=== PATIENT | male | born 2000 | race Two or more races ===

== ENCOUNTER 2024-09-03 17:39 | Emergency (ER) | payer MEDICAID, SELFPAY ==
[2024-09-03 18:07] VITALS: BP 111/75; PULSE 82; RESP 16; TEMP 36.9; O2SAT 99; BMI 18.6
--- NOTE | 2024-09-03 18:19 | EDNOTE_ITS ---
ED Wound/Laceration-RME/HPI General Chief Complaint: Wound/Laceration Stated Complaint: L) 5TH FINGER LAC Time Seen by Provider: 09/03/24 18:14 Arrival date/time: 09/03/24 17:39 24M with no significant PMH presents ot ED with L pinky lac while trying to open a can. Patient has not had a tetanus shot in the past 5 years. Limitations: no limitations Related Data Allergies Allergy/AdvReac Type Severity Reaction Status Date / Time No Known Allergies Allergy Verified 09/03/24 17:46 Review of Systems Review of Systems Systems Reviewed: All systems reviewed, normal except as documented Constitutional Constitutional: Reports system reviewed and no additional complaints, except as documented, Denies fever(s) and Denies headache(s) ENT Ears, Nose, Mouth, and Throat: Denies disequilibrium and Denies headache(s) Cardiovascular Cardiovascular: Reports system reviewed and no additional complaints, except as documented, Denies chest pain and Denies dyspnea Respiratory Respiratory: Reports system reviewed and no additional complaints, except as documented, Denies cough and Denies dyspnea Gastrointestinal Gastrointestinal: Reports system reviewed and no additional complaints, except as documented, Denies abdominal pain, Denies nausea and Denies vomiting Integumentary/Breasts Skin/Breast: Reports as per HPI and Reports skin pain Neurologic Neurologic: Reports system reviewed and no additional complaints, except as documented, Denies confusion, Denies disequilibrium and Denies headache(s) Psychiatric Psychiatric: Denies confusion Past Medical History Social History SMOKING STATUS: Former smoker ED Exam General Limitations: Present no limitations General appearance: Present alert and in no apparent distress Head Head exam: Present atraumatic Eye Eye exam: Present normal appearance, PERRL and EOMI ENT ENT exam: Present normal exam, normal oropharynx and mucous membranes moist Neck Neck exam: Present normal inspection, full ROM and trachea midline Chest Chest inspection: Present normal inspection and symmetric chest wall rise Respiratory Respiratory exam: Present normal lung sounds bilaterally Cardiovascular Cardiovascular exam: Present regular rate, normal rhythm and normal heart sounds Abdominal Exam Abdominal exam: Present soft and normal bowel sounds Extremities Exam Extremities exam: Present full ROM Expanded Upper Extremity Exam Hand exam: Present full ROM and laceration (1.5 cm L pinky palmar side) Back Exam Back exam: Present normal inspection and full ROM Neurological Exam Neurological exam: Present alert, oriented X3 and CN II-XII intact Psychiatric Psychiatric exam: Present normal affect and normal mood Skin Skin exam: Present warm, dry, intact and normal color Course Quality Measures none Orders Category Date Time Status Set Up Suture Tray STAT Care 09/03/24 18:14 Completed Wound Care NOW Care 09/03/24 18:14 Completed Tet,Diphth,Pertuss(Acell)-Tdap [Boostrix Vacc] Med 09/03/24 18:14 Discontinued 0.5 ml IMI .ONCE ONE Vital Signs Vital signs: Vital Signs Temperature 98.5 F 09/03/24 18:07 Pulse Rate 82 09/03/24 18:07 Respiratory Rate 16 09/03/24 18:07 Blood Pressure 111/75 09/03/24 18:07 Pulse Oximetry (%) 99 09/03/24 18:07 Oxygen Delivery Method Room Air 09/03/24 18:07 O2 at 99% on RA and WNLs Wound / Laceration MDM Narrative MDM Narrative:: 24M with no significant PMH presents ot ED with L pinky lac while trying to open a can. Patient has not had a tetanus shot in the past 5 years. Physical exam reveal 1.5 cm lac on L pinky finger (palmar). ROM intact. Patient is afebrile, calm,and alert. Tdap given. Wound cleaned/irrigated and closed with 6 stitches. Given marriage counselor minister to have stitches removed in about 14 days. Patient data External records reviewed:: None Clinical information provided by:: patient Social determinants that could affect healthcare access:: none Patient has the following chronic illnesses:: none How is presenting disease/condition affected by chronic disease/condition?: no chronic disease Evaluation data The following diagnostics were reviewed and interpreted by me:: other (specify) (none) Lab and/or radiology exams considered but not ordered:: not ordered Interpretation Summary: n/a Medications / Prescriptions Medications or Prescriptions considered but not ordered:: ordered Medication administrations:: Medication Administration History Discontinued Medications Diphtheria/Tetanus/Acell Pertussis (Diphth,Pertuss(Acell),Tet Vac 0.5 Ml Syr- Adult) 0.5 ml IMi .ONCE ONE Stop: 09/03/24 18:15 Last Admin: 09/03/24 18:37 Dose: 0.5 ml Documented By: ER above Consultations Consultation(s) initiated? (list below): No Diagnosis Wound Differential Diagnosis: laceration, abrasion and avulsion of skin Most likely diagnosis given after review of the tests above:: laceration Admission Indicated Admission indicated?: not indicated Admission Request Was there a request for admission?: No Disposition Plan Disposition Plan: Discharge Discharge Attestation Discharge Attestation: The patient and all family members were given an opportunity to ask questions and understood the discharge instructions. Discharge instructions specifically effects, indications for sooner follow up or return to the emergency department, and the expected course of current diagnosis. Patient condition: Stable Discharge Plan Plan Patient Disposition: HOME (Self Care) Disposition Comment: Stable Problem List Clinical Impression: Laceration Patient/Caregiver Discharge Instructions Additional Instructions: Please follow-up with PCP within 24-48 hours and return immediately if symptoms worsen. Have stitches removed in about 10-14 days. Print Language: Croatian Stand Alone Forms: Patient Portal Info Letter CLAUDE/JONI Supervising Physician CLAUDE/JONI Supervising Physician: Dr. Gamble
[2024-09-03] MEDS: DIPHTH,PERTUSS(ACELL),TET VAC 0.5 ML SYR- ADULT IMi (18:37)
== END 2024-09-03 19:33 | disposition home or self-care (01) ==
LOC: SERX 19:36
PROVIDERS: Emergency Provider Emergency Medicine
DX: S61.217A Laceration without foreign body of left little finger without damage to nail, initial encounter (principal); W26.8XXA Contact with other sharp object(s), not elsewhere classified, initial encounter; Z23 Encounter for immunization
CPT/HCPCS: 90471; 90715; 99283

== ENCOUNTER 2024-09-19 17:35 | Emergency (ER) | payer MEDICAID, SELFPAY ==
[2024-09-19 17:58] VITALS: BP 121/76; PULSE 74; RESP 16; TEMP 36.8; O2SAT 98; BMI 19.3
--- NOTE | 2024-09-19 18:25 | EDNOTE_ITS ---
ED Wound/Laceration-RME/HPI General Chief Complaint: Wound Recheck / Suture Removal Stated Complaint: LEFT PINKY SUTURE REMOVAL Time Seen by Provider: 09/19/24 17:44 Arrival date/time: 09/19/24 17:35 24-year-old male with no significant medical problems presents emergency department today for concerns for suture removal. Patient reports no fever nausea or vomiting patient reports wound is well-approximated with no discharge Limitations: no limitations Related Data Allergies Allergy/AdvReac Type Severity Reaction Status Date / Time No Known Allergies Allergy Verified 09/19/24 17:38 Review of Systems Review of Systems Systems Reviewed: All systems reviewed, normal except as documented Constitutional Constitutional: Reports system reviewed and no additional complaints, except as documented, Denies fever(s) and Denies headache(s) Eyes Eyes: Reports system reviewed and no additional complaints, except as documented and Denies blurry vision ENT Ears, Nose, Mouth, and Throat: Reports system reviewed and no additional complaints, except as documented, Denies headache(s), Denies nasal congestion and Denies nasal discharge Cardiovascular Cardiovascular: Reports system reviewed and no additional complaints, except as documented, Denies chest pain and Denies dyspnea Respiratory Respiratory: Reports system reviewed and no additional complaints, except as documented, Denies chest congestion, Denies cough and Denies dyspnea Gastrointestinal Gastrointestinal: Reports system reviewed and no additional complaints, except as documented and Denies abdominal pain Integumentary/Breasts Skin/Breast: Reports system reviewed and no additional complaints, except as documented, Denies rash and Reports wounds (Sutures in place left hand) Neurologic Neurologic: Reports system reviewed and no additional complaints, except as documented, Reports as per HPI and Denies headache(s) Past Medical History Social History SMOKING STATUS: Never smoker ED Exam General Limitations: Present no limitations General appearance: Present alert and in no apparent distress Head Head exam: Present atraumatic Eye Eye exam: Present normal appearance, PERRL and EOMI ENT ENT exam: Present normal exam, normal oropharynx and mucous membranes moist Neck Neck exam: Present normal inspection, full ROM and trachea midline Chest Chest inspection: Present normal inspection and symmetric chest wall rise Respiratory Respiratory exam: Present normal lung sounds bilaterally Cardiovascular Cardiovascular exam: Present regular rate, normal rhythm and normal heart sounds Abdominal Exam Abdominal exam: Present soft and normal bowel sounds Extremities Exam Extremities exam: Present normal inspection and full ROM Back Exam Back exam: Present normal inspection and full ROM Neurological Exam Neurological exam: Present alert, oriented X3 and CN II-XII intact Psychiatric Psychiatric exam: Present normal affect and normal mood Skin Skin exam: Present warm, dry, intact and normal color Course Quality Measures none Vital Signs Vital signs: Vital Signs Temperature 98.3 F 09/19/24 17:58 Pulse Rate 74 09/19/24 17:58 Respiratory Rate 16 09/19/24 17:58 Blood Pressure 121/76 09/19/24 17:58 Pulse Oximetry (%) 98 09/19/24 17:58 Oxygen Delivery Method Room Air 09/19/24 17:58 O2 saturation 98% room air within normal limits Wound / Laceration MDM Narrative MDM Narrative:: 24-year-old male with no significant medical problems presents emergency department today for concerns for suture removal. Patient reports no fever nausea or vomiting patient reports wound is well-approximated with no discharge On exam patient has sutures in place Sutures removed in their entirety Patient discharged home in no distress to follow-up with primary care doctor in the next 24 to 48 hours and for any worsening symptoms to return to the ER immediately Patient data External records reviewed:: [facility] previous records Clinical information provided by:: patient Social determinants that could affect healthcare access:: none Patient has the following chronic illnesses:: None How is presenting disease/condition affected by chronic disease/condition?: no chronic disease Evaluation data The following diagnostics were reviewed and interpreted by me:: other (specify) (N/A) Lab and/or radiology exams considered but not ordered:: Consider not ordered Interpretation Summary: N/A Medications / Prescriptions Medications or Prescriptions considered but not ordered:: No meds Medication administrations:: No Meds Consultations Consultation(s) initiated? (list below): No Diagnosis Wound Differential Diagnosis: laceration, abrasion and avulsion of skin Most likely diagnosis given after review of the tests above:: Suture removal Admission Indicated Admission indicated?: not indicated Admission Request Was there a request for admission?: No Disposition Plan Disposition Plan: Discharge Discharge Attestation Discharge Attestation: The patient and all family members were given an opportunity to ask questions and understood the discharge instructions. Discharge instructions specifically effects, indications for sooner follow up or return to the emergency department, and the expected course of current diagnosis. Patient condition: Stable Discharge Plan Plan Patient Disposition: HOME (Self Care) Disposition Comment: Stable Problem List Clinical Impression: Encounter for removal of sutures Patient/Caregiver Discharge Instructions Education Materials: ED Stitches/Staple Removal No ... Additional Instructions: Please follow up with your primary care doctor in the next 24-48hrs for any worsening symptoms return here immediately Print Language: Pashto Stand Alone Forms: Jolanta Award Info., Patient Portal Info Letter PA/FOUNDRY SUPERINTENDANT Supervising Physician PA/FOUNDRY SUPERINTENDANT Supervising Physician: Dr Baptiste
== END 2024-09-19 20:23 | disposition home or self-care (01) ==
PROVIDERS: Emergency Provider Emergency Medicine
DX: S61.412D Laceration without foreign body of left hand, subsequent encounter (principal); X58.XXXD Exposure to other specified factors, subsequent encounter
CPT/HCPCS: 99282

== ENCOUNTER 2024-12-02 19:35 | Emergency (ER) | payer MEDICAID, SELFPAY ==
--- NOTE | 2024-12-02 19:58 | XR_ITS ---
Examination: Hand, right 3 views Technique: Hand AP, oblique, lateral 3 views Date and time of exam: December 06, 2024 2120 hours INDICATIONS: Patient punched a wall today with hand pain. FINDINGS: Dorsal dislocation of the fourth and fifth metacarpals at the bases with tiny chip fractures off the base of the fifth metacarpal Digits intact IMPRESSION: Dorsal dislocation bases fourth and fifth metacarpals with tiny chip fractures off the base of the fifth metacarpal
--- NOTE | 2024-12-02 20:31 | EDNOTE_ITS ---
Upper Extremity Injury RME/HPI General Chief Complaint: Hand/Wrist Problems Stated Complaint: RIGHT HAND INJURY Time Seen by Provider: 12/02/24 20:17 Arrival date/time: 12/02/24 19:35 Limitations: no limitations RME / HPI RME / HPI narrative: 24-year-old male presents to the ED with a complaint of right hand injury secondary to punching a table. The injury occurred approximately 2 hours ago. Related Data Allergies Allergy/AdvReac Type Severity Reaction Status Date / Time No Known Allergies Allergy Verified 09/19/24 17:38 Review of Systems Review of Systems Systems Reviewed: All systems reviewed, normal except as documented Past Medical History Social History SMOKING STATUS: Current some day smoker ED Exam Narrative Physical exam: Alert and oriented 24-year-old male, mild acute pain distress, holding right hand against chest. No tenderness noted to the elbow or forearm. No tenderness to the distal radius or ulna. No pain with axial thumb load or snuffbox tenderness. No tenderness to the first second metacarpals or MCP joints. Positive pain to the third metacarpal and MCP joint with flexion of the third fi nger. Ecchymosis noted to the 4th and 5th MCP joints with significant swelling and tenderness to the 4th and 5th metacarpals. CMS intact distally to all 5 fingers. General Limitations: Present no limitations General appearance: Present alert Course Course Course Narrative: 24-year-old male presents to the ED with a complaint of right hand injury secondary to punching a table. The injury occurred approximately 2 hours ago. Alert and oriented 24-year-old male, mild acute pain distress, holding right hand against chest. No tenderness noted to the elbow or forearm. No tenderness to the distal radius or ulna. No pain with axial thumb load or snuffbox tenderness. No tenderness to the first second metacarpals or MCP joints. Positive pain to the third metacarpal and MCP joint with flexion of the third finger. Ecchymosis noted to the 4th and 5th MCP joints with significant swelling and tenderness to the 4th and 5th metacarpals. CMS intact distally to all 5 fingers. Quality Measures none Orders Category Date Time Status XR hand comp RT min 3V Stat Exams 12/02/24 19:58 Taken Discharge Plan Patient/Caregiver Discharge Instructions Print Language: Upper Sorbian
[2024-12-02 20:33] VITALS: BP 110/69; PULSE 75; RESP 20; TEMP 37.7; O2SAT 95
[2024-12-02] MEDS: IBUPROFEN TAB 600 MG TABLET PO (20:51)
--- NOTE | 2024-12-02 23:04 | PD.EDADDENDU ---
Emergency Room Addendum Addendum Narrative: I was asked to review this case by Christiane Clifford PA-C and determined that I need to consult a hand surgeon in order to see if the fourth and fifth right metacarpal dislocations can be reduced. On exam, patient has swelling to the medial right dorsum and palm of the hand. 2337: Spoke with [facility]'s transfer center. They will present the case to their hand surgeon and call me back. Multiple calls were placed to multiple [facility] trauma centers in an attempt to speak with a hand surgeon without any callbacks. Discussed risks versus benefits regarding reduction and procedural sedation. Patient consented to procedures. Will proceed with the reduction. See procedure note below for dislocation reduction, procedural sedation, and splint placement. Post procedural right hand x-ray shows successful reduction of the fourth and fifth dislocations, no new fractures, but concern for carpal dislocation, according to my intepretation. CT of the right hand ordered. 0426: CT of the right hand resulted. See below for report. Still pending consultation with a hand surgeon at this time. 0600: Care signed out to Dr. Baptiste (emergency physician). Past medical, surgical, social and family history reviewed. Vitals and home medications reviewed. Results and treatment plan discussed. They will assume the care of the patient at this time and will follow the patient, pending consultation with a hand surgeon. Procedures -ED Orthopedic Joint Reduction Joint #1: Time Out Performed: Yes Side: Right Joint Reduction Location: other (hand) Analgesia: procedural sedation Technique used: direct manipulation Post-reduction neuro exam: intact Post-reduction vascular: intact Post Reduction X-Ray Obtained: Yes Post Reduction X-Ray Results: reduced Splint Applied: Yes Patient Tolerated Procedure: well and no complications Procedural Sedation Indication: fracture/dislocation reduction Presedation Evaluation: Patient is alert, awake, and oriented x4, communicating and is answering questions appropriately. Preparation: personnel monitor applied, pulse oximeter, capnometry used, suction/airway equipment at bedside and IV secured Ketamine: IV Ketamine dose (mg): 135 Patient Tolerated Procedure: well and no complications Splint Fabrication: Clinician Made Type: Other (ulnar gutter) Reason for Splint: Optimal Positioning, Pain Management, Minimize Deformities and Support Joint/Muscle Site condition: Intact Circulation Distal to Splint: Yes Movement Distal to Splint: Yes Senation Distal to Splint: Yes Tolerance: Tolerates Well RADIOLOGY RESULTS: Telerad Preliminary Report Draft Patient: JAIMIE MCHUGH Record#: [id number] Birthdate: 2000 Age/Sex: 24 / M Location: [facility] Attending Dr: Ordering Physician: Date of Service: Procedure(s): Accession Number(s): cc: ~ CT right hand without intravenous contrast (axial sections with sagittal and coronal reformats) December 03, 2024 at 0308 hours Clinical History: Pain and deformity Findings: The evaluation is limited due to motion artifact. POP slab is noted. There is an acute comminuted and displaced fracture of the dorsoulnar aspect of the hamate, with intra-articular extension at the carpometacarpal joint of the fifth digit. There is a questionable acute minimally displaced fracture of the base of the fifth metacarpal. There is mild posterior dislocation of the base of the fifth metacarpal with respect to the hamate. There is mild adjacent soft tissue swelling. The other visualized bones and joints are unremarkable. No significant joint effusion is seen. The visualized muscles are unremarkable. Impression: Limited evaluation as described. 1. Acute comminuted and displaced fracture of the dorsoulnar aspect of the hamate, with intra-articular extension at the carpometacarpal joint of the fifth digit. 2. Questionable acute minimally displaced fracture of the base of the fifth metacarpal. 3. Mild posterior/dorsal dislocation of the base of the fifth metacarpal with respect to the hamate. 4. Other findings as described above. Report Electronically Signed By: Caio Shah 12/03/2024 3:58:53 AM [EST]
[2024-12-02 23:10] VITALS: BP 149/89; PULSE 63; RESP 18; TEMP 37.5; O2SAT 99
[2024-12-02 23:20] VITALS: PULSE 50
[2024-12-03] VITALS (9 sets, daily range): BP systolic 136–162; BP diastolic 72–101; PULSE 45–476; RESP 11–19; TEMP 36.6–36.9; O2SAT 97–100
--- NOTE | 2024-12-03 02:12 | XR_ITS ---
Examination: Hand, right 2 views Technique: Hand AP, lateral right hand 2 views Date and time of exam: December 03, 2024, 0227 hours INDICATIONS: Post reduction films FINDINGS: Improvement in the dorsal dislocation bases fourth and fifth metacarpals Small fracture fragments noted either off the hamate and/or base of the fifth metacarpal IMPRESSION: Improvement in the dorsal dislocation bases fourth and fifth metacarpals
[2024-12-03] MEDS: KETAMINE 50 MG/ML VIAL 10 ML 135 MG IVP (02:21)
--- NOTE | 2024-12-03 02:35 | XR_ITS ---
Examination: CT right hand, without contrast. 2-D sagittal reconstructions. 2-D coronal reconstructions. 3-D reconstructions. Date and time of exam:December 03, 2024 0308 hours INDICATIONS: Punching injury to the hand today, hand pain CTDI: vol (mGy):3.44 DLP: (mGycm):7.2 Technique: Multiple 1.25 mm axial sections of the right hand without intravenous contrast have been obtained. 2-D sagittal and coronal reconstructions have been obtained. 3-D reconstructions have been obtained. Low dose protocols were performed. One or more of the following dose reduction techniques were used; automated exposure control, adjustment of the mA and/or KV according to patient size, use of iterative reconstruction technique. Findings: Dislocation dorsally of the bases of the fourth and fifth metacarpals Comminuted displaced fractures of the dorsal surface of the hamate axial image 83 The images are degraded by patient motion Suspicious for tiny fractures off the base of the fifth metacarpal Distal radius distal ulna intact IMPRESSION: Dislocation dorsally of the bases of the fourth and fifth metacarpals Small chip fractures off the base of the fifth metacarpal Comminuted fractures dorsal surface of the hamate
--- NOTE | 2024-12-03 03:59 | PRELIM_ITS ---
CT right hand without intravenous contrast (axial sections with sagittal and coronal reformats) December 03, 2024 at 0308 hours Clinical History: Pain and deformity Findings: The evaluation is limited due to motion artifact. POP slab is noted. There is an acute comminuted and displaced fracture of the dorsoulnar aspect of the hamate, with intra-articular extension at the carpometacarpal joint of the fifth digit. There is a questionable acute minimally displaced fracture of the base of the fifth metacarpal. There is mild posterior dislocation of the base of the fifth metacarpal with respect to the hamate. There is mild adjacent soft tissue swelling. The other visualized bones and joints are unremarkable. No significant joint effusion is seen. The visualized muscles are unremarkable. Impression: Limited evaluation as described. 1. Acute comminuted and displaced fracture of the dorsoulnar aspect of the hamate, with intra-articular extension at the carpometacarpal joint of the fifth digit. 2. Questionable acute minimally displaced fracture of the base of the fifth metacarpal. 3. Mild posterior/dorsal dislocation of the base of the fifth metacarpal with respect to the hamate. 4. Other findings as described above. Report Electronically Signed By: Caio Shah 12/03/2024 3:58:53 AM [EST]
--- NOTE | 2024-12-03 06:12 | PC.LAC ---
Fernanda from [facility] stated that the Plastic Surgeon stated he doesnt think pt need to be transferred and he suggest Pt to be put in a splint and be seen out patient. They suggested pt to go to a hand Clinic for out pt treatment. will relay to MD Baptiste
--- NOTE | 2024-12-03 06:20 | EDNOTE_ITS ---
Emergency Room Addendum Addendum Narrative: 0600: Care assumed from Dr. Gamble, the previous shift emergency physician. Past medical, surgical, social and family history reviewed. Vitals and home medications reviewed. I will assume the care of the patient at this time, pending consultation with hand surgeon and final disposition. Please refer to the emergency department record for history and examination from initial visit.?The following addendum documentation note is intended to reflect any pending information, findings, or radiology results not included in the patient?s initial chart. 0835: I spoke with transfer nurse at [facility]. Discussed patients PMHx, HPI, ED cou rse, exam findings, labs, and radiology results. State they will presents the case to their hand surgeon. Patient has been accepted for transfer by Dr. Mills at [facility]. Patient was transferred in stable condition.
--- NOTE | 2024-12-03 07:30 | PC.NURSE ---
ASSUME CARE FOR THIS 24 YEAR. PT HERE FOR RIGHT HAND FRACTURE AFTER HE PUNCHED A TABLE. ON ASSESSMENT PT HAS ON A ULNAR GUTTER SPLINT TO THE RIGHT HAND WITH CMS INTACT. PT IS A GCS OF 15, A&OX4. PT WAS GIVEN UPDATE ON PLAN OF CARE, CALL LIGHT WITHIN REACH.
--- NOTE | 2024-12-03 08:07 | PC.CM ---
Addendum entered by Wilma Michel RN 12/03/24 09:13: 0810 I spoke to Amina at [facility] and provided information on transfer request. I transferred call to Dr. Baptiste per Amina's request. Original Note: 0754 I received a referral to transfer patient or get an appointment as outpatient for a hand specialty. Dr. Baptiste asked that I contact [facility] because patient requested the [place] area. I will initiate transfer and fax over information and push over images.
--- NOTE | 2024-12-03 09:40 | PC.CM ---
Addendum entered by Wilma Michel RN 12/03/24 10:53: I set up transport with [facility] and they will be here at 1130. I let Santosh charge nurse know the flower buncher or picker time and I left complete packet with 1 CD with her. Original Note: I received a call from Amina with the transfer center at [facility]. She states patient has been accepted by Dr. Mills ED to ED. The number to call and give report is [phone]. I will make a CD and get transfer packet completed.
--- NOTE | 2024-12-03 09:53 | PC.NURSE ---
PT ALREADY HAD ON A ULNAR GUTTER SPLINT, I ONLY CHARTED THE SPLINT.
--- NOTE | 2024-12-03 11:04 | PC.NURSE ---
CALLED [facility] AND SPOKE TO ROOPA SAMUEL TO WHOM I GAVE REPORT TOO.
== END 2024-12-03 12:20 | disposition short-term general hospital (02) ==
PROVIDERS: Emergency Provider Emergency Medicine
DX: S62.141A Displaced fracture of body of hamate [unciform] bone, right wrist, initial encounter for closed fracture (principal); W22.03XA Walked into furniture, initial encounter
CPT/HCPCS: 29126; 73120; 73130; 73200; 99285; A9270